=== PATIENT | female | born 1980 | race Caucasian/White ===

== ENCOUNTER → 2023-08-24 16:54 | Outpatient (REF) | payer OTHER, SELFPAY | LOC: WDC 16:54 | PROVIDERS: ATTENDING PHYSICIAN Obstetrics & Gynecology Gynecology; FAMILY PHYSICIAN Internal Medicine | DX: Z12.31 Encounter for screening mammogram for malignant neoplasm of breast (principal) | CPT/HCPCS: 77063; 77067 ==

== ENCOUNTER → 2024-05-03 08:36 | Outpatient (REF) | payer OTHER, SELFPAY | LOC: HWRAD 08:36 | PROVIDERS: ATTENDING PHYSICIAN Nurse Practitioner | DX: R10.9 Unspecified abdominal pain (principal); R07.81 Pleurodynia | CPT/HCPCS: 71101; 72072; 76830; 76856 ==

== ENCOUNTER → 2024-08-27 16:03 | Outpatient (REF) | payer BC, SELFPAY | LOC: WDC 16:03 | PROVIDERS: ATTENDING PHYSICIAN Obstetrics & Gynecology Gynecology; FAMILY PHYSICIAN Internal Medicine | DX: Z12.31 Encounter for screening mammogram for malignant neoplasm of breast (principal) | CPT/HCPCS: 77063; 77067 ==

== ENCOUNTER 2024-10-25 21:12 | Emergency (ER) | payer BC, SELFPAY ==
[2024-10-25 21:14] VITALS: BP 147/89
[2024-10-25 21:41] LABS: Lactic Acid 0.9 mmol/L (0.7-2.0)
[2024-10-25 21:45] LABS: ALT (SGPT) 20 U/L (0-35); AST (SGOT) 21 U/L (14-36); Albumin 4.4 g/dl (3.5-5.0); Alkaline Phosphatase 67 U/L (38-126); Blood Urea Nitrogen 11 mg/dl (7-17); Calcium 8.7 mg/dl (8.4-10.2); Carbon Dioxide 25 mmol/L (22-30); Chloride 106 mmol/L (98-107); Glucose 122 mg/dl (70-99); Potassium 3.9 mmol/L (3.5-5.1); Sodium 139 mmol/L (135-145); Total Bilirubin 0.4 mg/dl (0.2-1.3); Total Protein 7.4 g/dl (6.3-8.2); eGFR > 60.00
[2024-10-25 23:36] VITALS: BP 138/76
[2024-10-25 23:38] VITALS: BP 138/76; BMI 21.3
[2024-10-25] MEDS: MOTRIN 600 MG PO (23:55)
[2024-10-26] VITALS: BP 124/72
[2024-10-26] MEDS: NSS 1000 IV
[2024-10-26 00:02] LABS: % Basophils 0.8 % (0-2); % Eosinophils 0.4 % (0-6); % Immature Granulocytes 0.2 % (0-0.5); % Lymphocytes 14.6 % (20.5-51.1); % Monocytes 10.4 % (1.7-9.3); % Neutrophils 73.6 % (42.2-75.2); Absolute Lymphocytes 0.8 10^3/uL (1.2-3.4); Absolute Monocytes 0.5 10^3/uL (0.1-0.6); Absolute Neutrophils 3.8 10^3/uL (1.4-6.5); Hematocrit 34.8 % (37.0-47.0); Hemoglobin 11.5 g/dL (12.0-16.0); Mean Corpuscular Hgb 27.8 pg (27.0-31.0); Mean Corpuscular Volume 84.1 fL (81.0-99.0); Nucleated Red Blood Cells % 0 %; Platelet Count 207 10^3/uL (130-400); Red Blood Cell Count 4.14 10^6/uL (4.20-5.40); Red Cell Dist. Width 15.1 % (11.5-14.5); White Blood Cell Count 5.2 10^3/uL (4.8-10.8)
[2024-10-26] MEDS: ROCEPHIN 2000 MG IV (00:11)
[2024-10-26 01:00] VITALS: BP 111/65
--- NOTE | 2024-10-26 01:12 | EDRN ---
In to see patient who is resting comfortably at this time, re-checked temp which has improved at this time, call conklin in reach, will check back with an update for patient.
--- NOTE | 2024-10-26 01:29 | ED.GENMED ---
History of Present Illness
General
Chief Complaint: Fever
Source: patient
Exam Limitations: none
Time Seen by Provider: 10/25/24 23:42
Nursing documentation reviewed up to this point in time: agreed with
History of Present Illness
History of Present Illness:
This is a 44-year-old woman with no significant past medical history, takes no medicines on a daily basis. She presents with 3-day history of posterior neck pain, stiffness with onset of fever today. She does note a bug bite to her left posterior
knee 6 days ago. She is unsure if she was bitten by a spider. Does not recall seeing a tick. But she has had some local swelling left posterior knee that has overall been improving over the past week, mild pain, mild itching. Onset of fever
today and she was unaware that she had surrounding erythema to her left posterior knee. She denies headache, no sore throat nor congestion, no cough nor shortness of breath. No abdominal pain no chest pain, no dysuria no urgency or hematuria.
She has been taking ibuprofen 600 mg every 6-8 hours as needed for fever and neck pain with improvement.
Past History
Past History
ED Past Medical History: None
ED Past Surgical History:
Social History
Tobacco: Non-smoker
Alcohol: None
Drug: None
Personal:
Living: with family
Phy Exam
Physical Exam
Physical Exam:
GENERAL: 44-year-old woman appears her stated age, bright and alert, pleasant, appears in no acute distress. Febrile 101.4 �F.
EYE: pupils equal and reactive. anicteric
NECK: Supple, mild to moderate paravertebral muscle tenderness, no midline bony tenderness. Mildly restricted range of motion but no meningismus, no significant adenopathy.
ENT: posterior pharynx is clear, oral mucosa is moist. TM clear b/l, nares patent.
CARDIAC: Regular rate and rhythm. no murmur.
LUNGS: Clear breath sounds bilaterally, no acute respiratory distress, no wheezes/rales/rhonchi
ABDOMEN: Soft, nondistended, without focal tenderness, no r/g, no cvat. normoactive BS.
NEUROLOGICAL: Alert and oriented x3, no focal neuro deficits.
SKIN: Warm and dry, normal color, good turgor. Left posterior popliteal region has a 2 cm firm raised nodule with central minute puncture site. There is moderate surrounding erythema that is moderately warm to touch, mildly tender to touch.
Questionable central clearing just superior to this firm raised nodule. There is no other rash appreciated. There is no lymphangitis.
MUSCULOSKELETAL: No C/C/E. peripheral pulses are full and equal b/l. No joint effusion.
PSYCH: Normal and appropriate interaction.
Course
Orders/Labs/Results
Orders:
Orders
10/25/24 21:20
Comprehensive Metabolic Panel Urgent
Lactic Acid Urgent
Lyme Progressive Urgent
Comment: ADD ON
10/25/24 23:39
Complete Blood Count/With Diff Urgent
10/25/24 23:49
Ibuprofen [Motrin] 600 mg .ROUTE .STK-MED ONE
10/25/24 23:55
Ibuprofen [Motrin] 600 mg PO NOW STA
10/25/24 23:57
Add On- LAB Urgent
Tests Added?: lyme titer
10/25/24 23:58
Blood Culture Q30M
HONEY Source: Blood/Venous
Specimen Description:
CefTRIAXone [Rocephin] 2,000 mg IV NOW STA
10/26/24 00:00
0.9% Sodium Chloride 1000 ml [Nss] 1,000 ml IV BOLUS
10/26/24 00:10
Sterile Water [Sterile Water For Injection] 20 ml .ROUTE .STK-MED
10/26/24 00:11
Blood Culture Q30M
HONEY Source: Blood/Venous
Specimen Description:
Abnormal Lab Results
10/25/24 10/25/24
21:20 23:39
RBC 4.14 L 10^6/uL
(4.20-5.40)
Hgb 11.5 L g/dL
(12.0-16.0)
Hct 34.8 L %
(37.0-47.0)
RDW 15.1 H %
(11.5-14.5)
Absolute Lymphs (auto) 0.8 L 10^3/uL
(1.2-3.4)
Lymphocytes % 14.6 L %
(20.5-51.1)
Monocytes % 10.4 H %
(1.7-9.3)
Glucose 122 H mg/dl
(70-99)
10/25/24 23:39
10/25/24 21:20
Vital Signs
Initial and Last Documented VS:
Initial Vital Signs
Temp Pulse Resp BP Pulse Ox
98.9 F 114 20 147/89 99
10/25/24 21:14 10/25/24 21:14 10/25/24 21:14 10/25/24 21:14 10/25/24 21:14
Last Documented Vital Signs
Temp Pulse Resp BP Pulse Ox
98.4 F 98 16 111/65 96
10/26/24 01:11 10/25/24 23:38 10/25/24 23:38 10/26/24 01:00 10/26/24 01:30
MDM/Problems Addressed
Differential Diagnosis Includes:
Patient presents with acute fever, noted insect bite left posterior popliteal region 6 days ago and on exam concern for early abscess formation, concern for cellulitis.
There is concern for some central clearing thus must consider erythema migrans, must consider Lyme's disease versus cellulitis, focal skin abscess. Skin nodule is firm, without fluctuance, at this point not a tenable to incision and drainage.
Patient notes some neck pain but no definitive meningismus, denies headache. Meningitis is less likely.
Thus far chemistry is unremarkable. Lactic acid is normal. Awaiting CBC. Will check blood cultures. Will add Lyme titer.
Will give ibuprofen for fever, initiate IV fluids and give an IV dose of Rocephin for coverage of potential cellulitis as well as potential Lyme's.
*Pulse Oximetry
Patient hypoxic: no
*Critical Care Note
Total Time (30-74mins, 75-104mins- exclusive of procedures): Not Applicable
Update Note
Update Note:
01:30
Patient feeling improved, fever has dissipated. Neck pain resolved.
White blood cell count normal at 5.2.
Will discharge to home with prescription for doxycycline for coverage of potential Lyme's disease as well as cellulitis/skin abscess.
Recommend warm compresses to left posterior knee. Continue ibuprofen as needed for fever, aches.
Prompt follow-up with PCP for recheck.
Return precautions discussed.
ED Attending Note
-
Portions of this chart may have been created with voice recognition software.� Occasional wrong word or��sound alike� substitutions may have occurred due to the inherent limitations of voice recognition software.
Discharge Plan
Departure
Patient Disposition: Home (Routine Discharge)
Date of Disposition: 10/26/24
Time of Disposition: 01:36
Patient with high blood pressure during this ER visit?: No
Condition: Good
Discharge Problem:
skin abscess with cellulitis
Instructions: Fever, Adult (DC), Skin abscess, Cellulitis (skin infection) in adults - ED discharge instructions
Prescriptions:
New
doxycycline monohydrate 100 mg capsule
100 mg PO BID Qty: 20 1RF
Referrals:
Lani Hernadez MD [Family Provider, Internal Medicine] - Call in 1-3 days for appt
Interventions
Interventions:
*Risk Screen - Suicide Last Done: 10/25/24 22:49
*General Assessment Last Done: 10/25/24 21:14
*Neglect/Abuse Screening Last Done: 10/25/24 22:49
*ED- Fall Risk Assessment Last Done: 10/25/24 22:48
*ED COVID-19 Vaccine History Last Done: 10/25/24 22:49
*Nursing Disposition Last Done: 10/26/24 01:49
ED- Neurological Assessment Last Done: 10/25/24 22:49
ED-Skin Assessment Last Done: 10/25/24 23:00
Discharge Date and Time
Discharge Date/Time: 10/26/24 01:49
Print Language: YI
--- NOTE | 2024-10-26 01:30 | EDRN ---
Dr. Rosado back in to see patient and go over plan for discharge with patient.
[2024-10-28 13:11] LABS: Lyme Antibody Screen, EIA Negative (Negative)
== END 2024-10-26 01:49 | disposition home or self-care (01) ==
LOC: EMR 21:12
PROVIDERS: Emergency Medicine; EMERGENCY PHYSICIAN Emergency Medicine; FAMILY PHYSICIAN Internal Medicine
DX: L02.416 Cutaneous abscess of left lower limb (principal); L03.116 Cellulitis of left lower limb
CPT/HCPCS: 96374; 96361; 99284; 80053; 83605; 85025; 86618; 87040

== ENCOUNTER → 2024-10-28 15:06 | Outpatient (REF) | payer BC, SELFPAY | LOC: RAD 15:06 | PROVIDERS: ATTENDING PHYSICIAN Nurse Practitioner | DX: I82.432 Acute embolism and thrombosis of left popliteal vein (principal) | CPT/HCPCS: 93971 ==